=== PATIENT | female | born 1985 | race Caucasian/White ===

== ENCOUNTER 2021-05-06 08:23 | Day surgery (SDC) | payer BC, MEDICAID ==
[2021-04-29 13:39] LABS: BASOPHILS # (AUTO) 0.1 X10'3 (0-0.2); BASOPHILS % (AUTO) 0.5 % (0-1); EOSINOPHILS # (AUTO) 0.3 X10'3 (0-0.9); EOSINOPHILS % (AUTO) 2.4 % (0-6); LYMPHOCYTES # (AUTO) 2.6 X10'3 (1.1-4.8); LYMPHOCYTES % (AUTO) 23.3 % (21-51); MEAN CORPUSCULAR HEMOGLOBIN 29.9 PG (27.0-31.0); MEAN CORPUSCULAR HGB CONC 33.2 g/dL (33.0-36.5); MEAN CORPUSCULAR VOLUME 90.2 FL (78-98); MEAN PLATELET VOLUME 9.9 FL (7.4-10.4); MONOCYTES # (AUTO) 0.6 X10'3 (0-0.9); MONOCYTES % (AUTO) 5.1 % (2-12); NEUTROPHILS # (AUTO) 7.6 X10'3 (1.8-7.7); NEUTROPHILS % (AUTO) 68.7 % (42-75); PRE OP HEMATOCRIT 40.4 % (35.0-45.0); PRE OP HEMOGLOBIN 13.4 g/dL (12.0-16.0); PRE OP PLATELET COUNT 329 X10'3 (140-440); RED BLOOD COUNT 4.48 X10'6 (4.20-5.60); RED CELL DISTRIBUTION WIDTH 13.7 % (11.5-14.5)
[2021-04-29 13:47] LABS: PRE OP PROTIME 10.8 SECONDS (9.0-12.0)
[2021-04-29 13:52] LABS: ALBUMIN 3.9 G/DL (3.4-5.0); ALBUMIN/GLOBULIN RATIO 1.1 (1.1-1.5); ALKALINE PHOSPHATASE 90 IU/L (46-116); BLOOD UREA NITROGEN 12 MG/DL (7-18); BUN/CREATININE RATIO 14.1 (6.6-38.0); CALCIUM 8.9 MG/DL (8.5-10.1); CHLORIDE 104 MMOL/L (99-107); CREATININE 0.85 MG/DL (0.40-0.90); PRE OP ALT 31 U/L (30-65); PRE OP ANION GAP 12 (8-16); PRE OP AST 16 U/L (10-37); PRE OP BILIRUB, TOTAL 0.4 MG/DL (0.0-1.0); PRE OP GLUCOSE 86 MG/DL (70-104); PRE OP POTASSIUM 3.7 MMOL/L (3.4-5.1); PRE OP SODIUM 143 MMOL/L (135-145); TOTAL CARBON DIOXIDE 27.2 MMOL/L (24-32); TOTAL PROTEIN 7.5 G/DL (6.4-8.2); eGFR 77 ML/MIN
[2021-05-06] VITALS (13 sets, daily range): BP systolic 129–174; BP diastolic 68–102
[~2021-05-06] VITALS: Ht 172.7 cm; Wt 112.0 kg
[~2021-05-06 08:23] MED LIST: ALBU0.63 NEB; ALBU8.5H8 INH; ERGO400C PO; LIDOcaine 1% W/epiNEPHrine 1:100,000 20ml vial ONE; LORA10CA PO; MULT-1085 PO; OMEP10CA5 PO; albuterol 2.5 MG/3 ML nebule NEB ONE; cefTAZidime 1gm inj ONE; cocaine 4% topical solution 4ml bottle ONE; diazepam 5mg tablet PO PRN; famotidine 20mg tablet PO ONE; methylPREDNISolone acetate 80mg/ml inj**IM only ONE; mupirocin 2% ointment 22GM ONE; oxymetazoline 15 ML nasal spray NS ONE; oxymetazoline 15 ML nasal spray NS PRN; ringers solution, lacted 1,000 ML IV SCH
[2021-05-06] MEDS ORDERED: ringers solution, lacted 1,000 ML IV SCH (09:55)
[2021-05-06] MEDS ORDERED: ondansetron/PF 4mg/2ml inj IV PRN (09:55)
[2021-05-06] MEDS ORDERED: meperidine/PF 25mg/ml syringe IV PRN ×2 (09:55)
[2021-05-06] MEDS ORDERED: morphine 4 MG/ML inj SYRINge IV PRN (09:55)
[2021-05-06] MEDS ORDERED: proCHLORperazine 10 MG/2 ml inj IV PRN (09:55)
[2021-05-06] MEDS ORDERED: morphine 2 MG/ML inj. syringe IV PRN (09:55)
[2021-05-06] MEDS ORDERED: fentaNYL/PF 50MCG/1 ML 2ML syringe ONE ×3 (10:49→12:42)
[2021-05-06] MEDS ORDERED: midazolam 1 mg/ML 2ml injection ONE (10:50)
[2021-05-06] MEDS ORDERED: sevoflurane 250ml liquid IH ONE (11:47)
[2021-05-06] MEDS ORDERED: acetaminophen 1,000mg/100ml IV 100 ML IV ONE (12:08)
[2021-05-06] MEDS ORDERED: ondansetron/PF 4mg/2ml inj ONE (12:09)
[2021-05-06] MEDS ORDERED: propofol inj 20 ML IV ONE (12:09)
[2021-05-06] MEDS ORDERED: dexamethasone sod phosphate 4mg/ml inj. ONE (12:09)
[2021-05-06] MEDS ORDERED: LIDOcaine 2% (20mg/ml) 5ml vial ONE (12:09)
[2021-05-06] MEDS ORDERED: meperidine/PF 25mg/ml syringe ONE (13:43)
--- NOTE | 2021-05-06 13:46 | NUR ---
Received from OR via [facility] , accompanied by Anesthesiologist and WORK ORDER SORTING CLERK report given by Gabriela. Addendum: 05/06/21 at 1435 by Patricia Kraft RN Amended: Links added.
[2021-05-06] MEDS: meperidine/PF 25mg/ml syringe IV PRN ×2 (14:03→14:12)
[2021-05-06] MEDS ORDERED: hydrALAZINE 20mg/ml inj. IV ONE (14:07)
--- NOTE | 2021-05-06 16:06 | NUR ---
PATIENT DISCHARGED FROM PACU AFTER WRITTEN AND VERBAL DISCHARGE INSTRUCTIONS GIVEN. PATIENT GAVE VERBAL UNDERSTANDING OF INSTRUCTION GIVEN. PATIENT LEFT FACILITY VIA WHEELCHAIR WITH RN. Addendum: 05/06/21 at 1626 by Patricia Kraft RN Amended: Links added.
== END 2021-05-06 16:06 | disposition home or self-care (01) ==
LOC: PAS 08:23
PROVIDERS: ATTEND Otolaryngology
DX: J34.2 Deviated nasal septum (principal); J34.3 Hypertrophy of nasal turbinates; J32.8 Other chronic sinusitis; J45.909 Unspecified asthma, uncomplicated; G43.909 Migraine, unspecified, not intractable, without status migrainosus; F32.9 Major depressive disorder, single episode, unspecified; F41.9 Anxiety disorder, unspecified; E66.9 Obesity, unspecified; Z68.37 Body mass index [BMI] 37.0-37.9, adult; E28.2 Polycystic ovarian syndrome; F17.210 Nicotine dependence, cigarettes, uncomplicated; Z88.8 Allergy status to other drugs, medicaments and biological substances; Z79.899 Other long term (current) drug therapy; Z79.01 Long term (current) use of anticoagulants; Z90.721 Acquired absence of ovaries, unilateral; Z72.89 Other problems related to lifestyle
CPT/HCPCS: 30140; 30520; 31253; 31259; 31267; 36415; 61782; 76380; 80053; 82948; 85025; 85576; 85610; 85730; 94640; 94760; A6402; C9250; J0131; J0360; J0713; J1040; J1100; J2001; J2175; J2250; J2405; J2704; J3010; A4618; A7000; J7120